=== PATIENT | male | born 1990 | race Two or more races ===

== ENCOUNTER 2019-03-30 05:22 | Day surgery (SDC) | payer OTHER ==
[~2019-03-30] VITALS: Ht 172.7 cm; Wt 61.2 kg
[2019-03-30] VITALS (11 sets, daily range): BP systolic 114–130; BP diastolic 61–84
[~2019-03-30 05:22] MED LIST: LEVOFLOXACIN500 MG ORAL; NKM
[2019-03-30] MEDS ORDERED: LR 1000ml 1,000 ML IVLG SCH (06:17)
--- NOTE | 2019-03-30 06:18 | Anethesia Preoperative Eval ---
Anesthesia Pre-op PMH/ROS General Date of Evaluation: Mar 30, 2019 Time of Evaluation: 07:11 Anesthesiologist: Alvina ASA Score: ASA 2 Mallampati Score Class I : Soft palate, uvula, fauces, pillars visible Class II: Soft palate, uvula, fauces visible Class III: Soft palate, base of uvula visible Class IV: Only hard plate visible Mallampati Classification: Class II Surgeon: Keyonna Diagnosis: Neck Pain Surgical Procedure: ACDF C5-6 Anesthesia History: none Family History: no anesthesia problems Allergies: Coded Allergies: No Known Allergies (Unverified , 03/29/19) Medications: see eMAR Patient NPO?: Yes NPO Date: Mar 29, 2019 NPO Time: 2229 Past Medical History Neurologic/Psychiatric: Reports: depression/anxiety PSxH Narrative: Appendectomy, L Knee Arthroscopy Anesthesia Pre-op Phys. Exam Physician Exam Last Vital Signs Date Time Temp Pulse Resp B/P (MAP) Pulse Ox O2 Delivery O2 Flow Rate FiO2 03/30/19 06:02 98.0 66 20 119/74 (89) 100 03/30/19 05:58 Room Air Constitutional: NAD Neurologic: CN 2-12 intact Cardiovascular: RRR Respiratory: CTA Gastrointestinal: S/NT/ND Airway Exam Mallampati Score: Class II MO: full ROM: limited Teeth: intact Anesthesia Pre-op A/P Risk Assessment & Plan Assessment: ASA 2 Plan: GA, SED, GlideScope Go Status Change Before Surgery: No Pre-Antibiotics Dru Grams Ancef IV Given Within 1 Hr of Incision: Yes Time Given: 07:31 Jairo Tinsley MD Mar 30, 2019 06:18
[2019-03-30] MEDS ORDERED: Rocuronium Bromide 50mg/5ml Inj IV ONE (06:22)
[2019-03-30] MEDS ORDERED: fentaNYL 100 mcg/2 mL IV PRN (06:30)
[2019-03-30] MEDS ORDERED: Acetaminophen (Non formulary) 100 ML IV ONE (06:30)
[2019-03-30] MEDS ORDERED: Ketorolac 30mg Inj IV PRN ×2 (06:30)
[2019-03-30] MEDS ORDERED: Meperidine 50mg/ml Inj(FOR RIGORS ONLY) IVP PRN (06:30)
[2019-03-30] MEDS ORDERED: HYDROcodone/Acetamin 7.5/325 tab ORAL PRN (06:30)
[2019-03-30] MEDS ORDERED: Atropine Sulfate 0.4mg/ml inj IVP PRN (06:30)
[2019-03-30] MEDS ORDERED: HYDROcodone/Acetamin 5/325 tab ORAL PRN (06:30)
[2019-03-30] MEDS ORDERED: Hydromorphone 0.5mg/0.5ml inj IVP PRN (06:30)
[2019-03-30] MEDS ORDERED: Metoclopramide 10mg/2ml Inj IVP PRN (06:30)
[2019-03-30] MEDS ORDERED: Labetalol 5mg/ml 20ml vial IV PRN (06:30)
[2019-03-30] MEDS ORDERED: oxyCODONE HCL/Acetaminophen 5/325mg ORAL PRN (06:30)
[2019-03-30] MEDS ORDERED: LORazepam Inj 2mg/ml 1ml IV PRN (06:30)
[2019-03-30] MEDS ORDERED: Midazolam 2mg/2ml Inj IVP PRN (06:30)
[2019-03-30] MEDS ORDERED: Dexamethasone 20mg/5ml ONE (06:33)
[2019-03-30] MEDS ORDERED: Dexamethasone 4mg/ml vial ONE (06:36)
[2019-03-30] MEDS ORDERED: Lidocaine 1% MPF 10mg/ml 5ml ONE (06:36)
[2019-03-30] MEDS ORDERED: Sodium Chloride 10ml vial INJ ONE (06:36)
[2019-03-30] MEDS ORDERED: fentaNYL 100 mcg/2 mL IV ONE ×2 (06:37→08:16)
[2019-03-30] MEDS ORDERED: Ketamine 500mg/10ml vial ONE (06:38)
[2019-03-30] MEDS ORDERED: Lidocaine 1% Plain 30 ml INJ ONE (06:42)
[2019-03-30] MEDS ORDERED: Thrombin 5000 units TOPIC ONE (06:50)
[2019-03-30] MEDS ORDERED: Gelfoam Size TOPIC ONE (06:50)
[2019-03-30] MEDS ORDERED: Bacitracin 50000 Units Vial ONE (06:50)
[2019-03-30] MEDS ORDERED: ceFAZolin sod 1 GM in NS 55 ML IVPB ONE (07:00)
[2019-03-30] MEDS ORDERED: Dexamethasone 20mg/5ml IVP ONE (07:00)
--- NOTE | 2019-03-30 07:07 | Immediate Post-Op Evaluation ---
Immediate Post-Op Evalulation Immediate Post-Op Evalulation Procedure: ACDF C5-6 Date of Evaluation: Mar 30, 2019 Time of Evaluation: 09:47 IV Fluids: 800 LR Blood Products: 0 Estimated Blood Loss: 25 Urinary Output: 0 Blood Pressure Systolic: 114 Blood Pressure Diastolic: 73 Pulse Rate: 78 Respiratory Rate: 16 O2 Sat by Pulse Oximetry: 100 Temperature (Fahrenheit): 97.2 Pain Score (1-10): 3 Nausea: No Vomiting: No Complications 0 Patient Status: awake, reacts, patent, extubated, none Hydration Status: adequate Dru Grams Ancef IV Given Within 1 Hr of Incision: Yes Time Given: 07:31 Jairo Tinsley MD Mar 30, 2019 07:07
--- NOTE | 2019-03-30 07:17 | Pre-Procedure Note/Attestation ---
Pre-Procedure Note/Attestation Complete Prior to Procedure Planned Procedure: not applicable Procedure Narrative: C5-C6 ACDF Plate Indications for Procedure Pre-Operative Diagnosis: Traumatic discogenic neckpain with internal derangement Attestation I attest that I discussed the nature of the procedure; its benefits; risks and complications; and alternatives (and the risks and benefits of such alternatives ), prior to the procedure, with the patient (or the patient's legal manufacturer representative). I attest that, if there was a reasonable possibility of needing a blood transfusion, the patient (or the patient's legal manufacturer representative) was given the [facility] standardized written summary, pursuant to the [place] Blood Safety Act ([place] Health and Safety Code # 1645, as amended). I attest that I re-evaluated the patient just prior to the surgery and that there has been no change in the patient's H&P, except as documented below: Justin Newby MD Mar 30, 2019 07:17
[2019-03-30] MEDS ORDERED: Bacitracin 50000 Units Vial IRRIG ONE (07:30)
[2019-03-30] MEDS ORDERED: Glycopyrrolate 0.2mg/ml 1ml Vial ONE ×2 (08:55→08:59)
[2019-03-30] MEDS ORDERED: D5 1/2NS 1,000 ML IV SCH (09:11)
--- NOTE | 2019-03-30 09:11 | Brief Operative Note ---
Immediate Post Operative Note Operative Note Pre-op Diagnosis: Traumatic discogenic neckpain with internal derangement Procedure: ACDF C5-C6 anterior plate C5C6 Fluro Interbody device Osteopromotive material Post-op Diagnosis: same as pre-op Findings: consistent w/pre-op dx studies Surgeon: Keyonna ABREU Polls Or Surveys Interviewer: Jez DURAN Anesthesiologist: Alvina ABREU Anesthesia: general Specimen: yes Complications: none Condition: stable Fluids: anesthesia Estimated Blood Loss: minimal Drains: none Implant(s) used?: Yes Justin Newby MD Mar 30, 2019 09:11
[2019-03-30] MEDS ORDERED: Naloxone 0.4mg/ml Inj IVP PRN (09:15)
--- NOTE | 2019-03-30 09:34 | 48 Hour Post Anesthesia Eval ---
Post Anesthesia Evaluation Procedure: ACDF C5-6 Date of Evaluation: Mar 30, 2019 Time of Evaluation: 12:34 Blood Pressure Systolic: 116 0: 73 Pulse Rate: 77 Respiratory Rate: 18 Temperature (Fahrenheit): 98.2 O2 Sat by Pulse Oximetry: 100 Airway: patent Nausea: No Vomiting: No Pain Intensity: 3 Hydration Status: adequate Cardiopulmonary Status: Stable Mental Status/LOC: patient returned to baseline Follow-up Care/Observations: 0 Post-Anesthesia Complications: 0 Follow-up care needed: ready to discharge Jairo Tinsley MD Mar 30, 2019 09:34
[2019-03-30] MEDS: DiphenhydrAMINE 50mg/ml Inj IVP PRN (10:30)
[2019-03-30] MEDS ORDERED: Chloraseptic Spray 20mL Bottle ORAL ONE (10:55)
[2019-03-30] MEDS ORDERED: Chloraseptic Spray 20mL Bottle ORAL PRN (11:00)
[2019-03-30] MEDS ORDERED: HYDROcodone/Acetamin 10/325 tab ORAL PRN (11:00)
[2019-03-30] MEDS ORDERED: LORazepam 0.5mg tab ORAL ONE (11:06)
[2019-03-30] MEDS ORDERED: LORazepam 0.5mg tab ORAL PRN (11:15)
[2019-03-30] MEDS: HYDROmorphone 1mg/ml Carpuject IVP PRN ×3 (12:13→15:49)
[2019-03-30] MEDS ORDERED: ceFAZolin sod 1 GM in D5W 55 ML IV SCH (14:00)
--- NOTE | 2019-03-30 14:49 | Diagnostic Imaging Report ---
INDICATION: Pain, intraoperative TECHNIQUE: Intraoperative imaging Fluoroscopy time: 7.4 seconds Total dose: 0.62694 mGym2 Total number of images: 3 COMPARISON: None FINDINGS: Intraoperative images demonstrate a surgical tool projected at the anterior aspect of the C5-6 disc. Subsequent images demonstrate placement of anterior fusion hardware and a disc spacer at C5-6 IMPRESSION: Intraoperative imaging, as described
--- NOTE | 2019-03-30 14:49 | Diagnostic Imaging Report ---
INDICATION: Pain, intraoperative TECHNIQUE: Intraoperative imaging Fluoroscopy time: 7.4 seconds Total dose: 0.18312 mGym2 Total number of images: 3 COMPARISON: None FINDINGS: Intraoperative images demonstrate a surgical tool projected at the anterior aspect of the C5-6 disc. Subsequent images demonstrate placement of anterior fusion hardware and a disc spacer at C5-6 IMPRESSION: Intraoperative imaging, as described
--- NOTE | 2019-03-30 17:30 | Consultation ---
DATE OF CONSULTATION: 03/30/2019 CONSULTING PHYSICIAN: Gerber Ocampo M.D. REFERRING PHYSICIAN: Justin Newby M.D. REASON FOR CONSULTATION: Acute pain consult. HISTORY OF PRESENT ILLNESS: Dear Dr. Justin Newby, Thank you kindly for consulting me to evaluate and render an opinion as to how to proceed in the management of the patient's acute postoperative cervical spine pain after cervical spine instrumentation surgery today. The patient is a 28-year-old gentleman, who injured his neck after a slip and fall injury. He complains of significant discomfort postoperatively. You consulted me to help with his postoperative management and pain control. I saw the patient at the bedside with the recovery room nurse, GERARD Cooper. I performed detailed history and physical examination. I reviewed the medical record in detail including preoperative records from Dr. Agrawal along with diagnostic testing. I also reviewed multiple records from today's date of surgery at [facility], March 2019 including records from the nursing and pharmacy departments. PAST MEDICAL HISTORY: 1. Acute postoperative cervical spine pain, status post cervical spine instrumentation surgery by Dr. Justin Newby, in March 2019. 2. Slip and fall accident. 3. Panic attacks. 4. Prostatitis history. PAST SURGICAL HISTORY: Knee surgery, appendectomy, and circumcision. ALLERGIES: No known drug allergies. MEDICATIONS: At home, p.r.n. [place]. SOCIAL HISTORY: The patient lives at home with his girlfriend and her extended family. He uses marijuana rarely. He states he quit alcohol usage this past [place]. He denies tobacco usage. FAMILY HISTORY: Noncontributory. REVIEW OF SYSTEMS: Per Dr. Agrawal. PHYSICAL EXAMINATION: VITAL SIGNS: Age 28. Height 5 feet 8 inches, weight 133 pounds, body mass index 20. Afebrile, pulse 76, respirations 16, blood pressure 126/84, oxygen saturation 100% on supplemental oxygen. HEENT: Normocephalic, atraumatic. NECK: Pain with range of motion of the neck. Neck dressing appears clean and dry. The patient is breathing, swallowing, and phonating within normal limits. CHEST: Clear to auscultation. HEART: Regular rate and rhythm. ABDOMEN: Soft. GENITOURINARY: Deferred. NEUROLOGIC: Detailed neurologic exam per Dr. Newby. EXTREMITIES: Moving all extremities x4. A 5/5 dorsiflexion, 5/5 plantar flexion in bilateral lower extremities. DIAGNOSTIC TESTING: From March 24, 2019 shows glucose 77, BUN 13, creatinine 0.7. Sodium 141, potassium 4.3, chloride 102, bicarb 26, calcium 10.3. Total protein 7.9. Albumin 5.4. Total bilirubin 0.7. Alkaline phosphatase 68, AST 17, ALT 20, hemoglobin A1c normal at 5. PTT 31. INR 1.1. White count 6, hematocrit 46, platelets 212. Urinalysis negative. MRSA screening negative. Hepatitis B and C and HIV are all negative. A 12-lead EKG shows normal sinus rhythm, ventricular rate 56. No evidence for acute cardiac ischemia. Echocardiogram shows normal left ventricular function, ejection fraction 60% to 65% dated March 27, 2019. Preoperative chest x-ray from March 24, 2019 shows no acute cardiopulmonary process. MRI of the cervical spine dated October 12, 2018. Impression, desiccation at every cervical level above C6. IMPRESSION: 1. Acute postoperative cervical spine pain, status post cervical spine instrumentation surgery by Dr. Justin Newby, in March 2019. 2. Slip and fall accident. 3. Panic attacks. 4. Prostatitis history. TREATMENT RECOMMENDATIONS: The patient presents postoperatively with significant discomfort after his neck surgery. He does have a history of panic attacks. So, I will order a p.r.n. dose of Ativan 0.5 mg to help with the anxiolysis. I would continue this dosing every six hours p.r.n. for further anxiety episodes or panic attacks. The patient has tolerated hydrocodone in the past. I have ordered [place] 10/325 one tablet orally every three hours p.r.n. for [id number]-tc-[id number] pain. The patient has received IV Dilaudid here operating room without any adverse side effects. Therefore, I have selected Dilaudid 0.5 mg intravenously every two hours p.r.n. for severe breakthrough pain. I have asked the nursing team to place Chloraseptic spray bottle at the bedside to help him with topical analgesia. I will empirically place the patient on Protonix 40 mg daily for GI ulcer prophylaxis. I have also ordered p.r.n. dose of Mylanta 30 mL q.6 hours in case of any GERD symptom exacerbation. I have ordered two antiemetics in case of any nausea symptoms postoperatively. I have started with Zofran 4 mg intravenously every 4 hours p.r.n. for nausea and vomiting. I have ordered Phenergan 12.5 mg intramuscularly every 8 hours p.r.n. for refractory nausea. I will order Benadryl 25 mg orally every 6 hours in case of any itching complaints. I have ordered an incentive spirometer to encourage good pulmonary toilet. I will defer DVT prophylaxis to the surgeon. The patient already has a supply of [place] for home usage. Gerber Ocampo M.D. DR: SAMANTHA JOB#: [id number] CC:
--- NOTE | 2019-03-31 02:45 | Operative Note - Dictated ---
DATE OF OPERATION: 03/30/2019 SURGEON: Justin Newby, Ph.D., M.D. MANAGER KNOWLEDGE: RENEE Brand. ANESTHESIA: Jairo Tinsley M.D. general with intubation. ESTIMATED BLOOD LOSS: Minimal. COMPLICATIONS: None. POSTOPERATIVE CONDITION: Good/stable. PROCEDURE: Anterior interbody reconstruction and fusion with diskectomy C5-C6, with placement of osteopromotive material, interbody device. Anterior internal plate fixation not integral to the interbody device. Intraoperative fluoroscopy interpreted by surgeon. SSEP monitoring. High-powered magnification dissection. DESCRIPTION OF PROCEDURE: The patient was brought to the operating room and in the supine position, general anesthesia with intubation was induced. IV antibiotics, IV Decadron were administered 30 minutes prior to incision time. Markers were placed on the right lateral aspect of the neck and a cross-table image was obtained demonstrating the correct level for incision placement. Left lateral aspect of the neck was sterilely prepped and marked prior to prep for the placement of the appropriate level incision. The marker on the right side of the neck had been removed. Anterior cervical spine was sterilely prepped and draped free in usual sterile fashion. Transverse incision was marked, was placed sharply anterolaterally through dermis and epidermis. Electrocautery dissection was carried through the subcutaneous tissue to the level of the platysmas muscle. Muscle was identified, isolated, transected in line with the incision. Blunt dissection was carried medial to the left sternocleidomastoid muscle as well as the carotid sheath through the deep cervical and pretracheal fascia to the midline between the right and left longus colli muscles. A spinal needle bent at 90-degree angle so as to avoid penetration greater than 3 mm into the disk space. It was placed under high-power magnification into disk space. Cross-table image was obtained demonstrating a correct level at C5-C6. Level was marked. Marker removed. Longus colli muscles were elevated over the appropriate interval followed with retractor placement. Small anterior annulotomy was performed over the involved intervals followed diskectomy to the posterior longitudinal ligament. Posterior longitudinal ligament was resected with decompression of the cord. The patient remained stable at all times. No evidence of cerebrospinal fluid leakage any time. Negative EMGs. After appropriate trials, the appropriate graft was tamped into position. Lordotic titanium containing osteopromotive material and autograft. Anterior internal plate fixation after 10 pounds of traction on the neck was removed, was placed in a compressive fashion. Fluoroscopic imaging, AP and lateral radiographs demonstrating excellent alignment and positioning. The patient is stable. x-rays were performed. Wound irrigated with antibiotic-containing saline. Exploration did not reveal any excoriation or laceration of vital structures. FloSeal applied followed sequential reapproximation of platysmas muscle and subcutaneous tissue followed surgical strips and sterile bandage maintained in place with tape. The patient was awakened and extubated in the operating room and transported to postop recovery in good stable condition. Justin Newby M.D. DR: SOHAM JOB#: [id number] CC:
--- NOTE | 2019-04-02 19:10 | Discharge Summary ---
Discharge Summary Discharge Summary _ DATE OF ADMISSION: 03/30/2019 DATE OF DISCHARGE: 03/30/2019 DISCHARGED BY: Dr. Justin Newby SURGEON: Dr. Justin Newby COMMERCIAL MAINTENANCE TECHNICIAN: Dr. Gerber Ocampo BRIEF HOSPITAL COURSE: Patient is a 28-year-old gentleman, who injured his neck after a slip and fall injury. MRI on October 12, 2018 showed desiccation at cervical level above C6. He was was admitted and underwent ACDF C5-C6. He tolerated procedure well. Surgery was uneventful. Post-operatively, patient was admitted for post-op care. He was placed on SCDs for DVT prophylaxis and was encouraged use of incentive spirometer. Patient was given pain management. Diet was advanced. Incision was clean, dry and intact. Patient was ambulating well with good pain control and was tolerating diet. Patient was eventually cleared for discharge home. FINAL DIAGNOSES: Traumatic discogenic neck pain with internal derangement status post ACDF C5-C6 PROCEDURE: Anterior interbody reconstruction and fusion with diskectomy C5-C6, with placement of osteopromotive material, interbody device. Anterior internal plate fixation not integral to the interbody device. Intraoperative fluoroscopy interpreted by surgeon. SSEP monitoring. High-powered magnification dissection. (Refer to Operative Report) DISCHARGE DISPOSITION: Patient was discharged home. DISCHARGE MEDICATIONS: Refer to Medication Reconciliation Sheet. DISCHARGE INSTRUCTIONS: Post-op instructions given. Follow-up in a week. I have been assigned to complete a DC summary on this account, I was not involved with the patient's management.--QUE Floyd Jacqueline Robles NP Apr 02, 2019 19:10
== END 2019-03-30 16:30 | disposition home or self-care (01) ==
LOC: SUR 05:22 → 3E 11:41
DX: M54.2 Cervicalgia (principal); Z90.89 Acquired absence of other organs; F41.0 Panic disorder [episodic paroxysmal anxiety]; F32.9 Major depressive disorder, single episode, unspecified; F41.9 Anxiety disorder, unspecified
CPT/HCPCS: 22554; 36415; 72040; 76000; 86850; 86900; 86901; 97161; C1713; J0690; J1100; J1170; J1200; J2001; J2250; J2405; J3010; J3490; 94003; 94150

== ENCOUNTER 2020-04-12 06:31 | Day surgery (SDC) | payer OTHER ==
[~2020-04-12] VITALS: Ht 170.2 cm; Wt 65.8 kg
[2020-04-12] VITALS (11 sets, daily range): BP systolic 102–126; BP diastolic 51–80
[~2020-04-12 06:31] MED LIST changes: +RELAFEN500 MG PO; +TYLENOL EXTRA500 MG ORAL; +ceFAZolin 1gm IVPB IVPB ONE; +celeBREX 200mg Cap **SURGERY PATIENTS ONLY ORAL ONE; +oxyCONTIN 20mg tab ORAL ONE
--- NOTE | 2020-04-12 07:46 | Pre-Procedure Note/Attestation ---
Pre-Procedure Note/Attestation Complete Prior to Procedure Planned Procedure: right Procedure Narrative: ankle arthroscopy, possible synovectomy Indications for Procedure Pre-Operative Diagnosis: right anle soft tissue impingement Attestation I attest that I discussed the nature of the procedure; its benefits; risks and complications; and alternatives (and the risks and benefits of such a lternatives), prior to the procedure, with the patient (or the patient's legal tour sales representative). I attest that, if there was a reasonable possibility of needing a blood transfusion, the patient (or the patient's legal tour sales representative) was given the [facility] standardized written summary, pursuant to the [place] Blood Safety Act ([place] Health and Safety Code # 1645, as amended). I attest that I re-evaluated the patient just prior to the surgery and that there has been no change in the patient's H&P, except as documented below: Rodolfo Quintero MD Apr 12, 2020 07:46
--- NOTE | 2020-04-12 07:47 | Operative Note - PDOC ---
Operative Note Operative Note Pre-op Diagnosis: right anle soft tissue impingement Procedure: see op report Post-op Diagnosis: same as pre-op plus Operative Findings: consistent w/pre-op dx studies Anesthesia: regional Specimen: none Complications: none Condition: stable Estimated Blood Loss: none Implant(s) used?: No Rodolfo Quintero MD Apr 12, 2020 07:47
[2020-04-12] MEDS ORDERED: HYDROmorphone 1mg/ml Carpuject SUBQ PRN ×2 (08:00)
[2020-04-12] MEDS ORDERED: Tylenol #3 tab (300mg/30mg) ORAL PRN ×2 (08:00)
[2020-04-12] MEDS ORDERED: HYDROcodone/Acetamin 5/325 tab ORAL PRN ×3 (08:00→08:15)
[2020-04-12] MEDS ORDERED: D5 1/2NS 1,000 ML IV SCH ×2 (08:00)
--- NOTE | 2020-04-12 08:11 | Anethesia Preoperative Eval ---
Anesthesia Pre-op PMH/ROS General Date of Evaluation: Apr 12, 2020 Time of Evaluation: 09:17 Anesthesiologist: Alvina ASA Score: ASA 2 Mallampati Score Class I : Soft palate, uvula, fauces, pillars visible Class II: Soft palate, uvula, fauces visible Class III: Soft palate, base of uvula visible Class IV: Only hard plate visible Mallampati Classification: Class II Surgeon: Leon Diagnosis: R Ankle Pain Surgical Procedure: R Ankle Arthroscopy Anesthesia History: none Family History: no anesthesia problems Allergies: Coded Allergies: No Known Allergies (Unverified , 04/08/20) Medications: see eMAR Patient NPO?: Yes Past Medical History Neurologic/Psychiatric: Reports: depression/anxiety PSxH Narrative: Appendectomy, L Knee Arthroscopy Anesthesia Pre-op Phys. Exam Physician Exam Last Vital Signs Date Time Temp Pulse Resp B/P (MAP) Pulse Ox O2 Delivery O2 Flow Rate FiO2 04/12/20 07:06 Room Air 04/12/20 07:02 96.8 60 18 118/76 100 Constitutional: NAD Neurologic: CN 2-12 intact Cardiovascular: RRR Respiratory: CTA Gastrointestinal: S/NT/ND Airway Exam Mallampati Score: Class II MO: full ROM: limited Teeth: intact Anesthesia Pre-op A/P Risk Assessment & Plan Assessment: ASA 2 Plan: GA, SED Status Change Before Surgery: No Pre-Antibiotics Dru Gram Ancef IV Given Within 1 Hr of Incision: Yes Time Given: 09:36 Jairo Tinsley MD Apr 12, 2020 08:11
--- NOTE | 2020-04-12 08:11 | Immediate Post-Op Evaluation ---
Immediate Post-Op Evalulation Immediate Post-Op Evalulation Procedure: R Ankle Arthroscopy Date of Evaluation: Apr 12, 2020 Time of Evaluation: 10:55 IV Fluids: 1000 Blood Products: 0 Estimated Blood Loss: 10 Urinary Output: 0 Blood Pressure Systolic: 104 Blood Pressure Diastolic: 51 Pulse Rate: 74 Respiratory Rate: 18 O2 Sat by Pulse Oximetry: 100 Temperature (Fahrenheit): 97.3 Pain Score (1-10): 2 Nausea: No Vomiting: No Complications 0 Patient Status: awake, reacts, patent, none Hydration Status: adequate Dru Gram Ancef IV Given Within 1 Hr of Incision: Yes Time Given: 09:36 Jairo Tinsley MD Apr 12, 2020 08:11
--- NOTE | 2020-04-12 08:12 | 48 Hour Post Anesthesia Eval ---
Post Anesthesia Evaluation Procedure: R Ankle Arthroscopy Date of Evaluation: Apr 12, 2020 Time of Evaluation: 13:12 Blood Pressure Systolic: 118 0: 75 Pulse Rate: 73 Respiratory Rate: 18 Temperature (Fahrenheit): 98 O2 Sat by Pulse Oximetry: 100 Airway: patent Nausea: No Vomiting: No Pain Intensity: 2 Hydration Status: adequate Cardiopulmonary Status: Stable Mental Status/LOC: patient returned to baseline Follow-up Care/Observations: 0 Post-Anesthesia Complications: 0 Follow-up care needed: ready to discharge Jairo Tinsley MD Apr 12, 2020 08:12
[2020-04-12] MEDS ORDERED: oxyCODONE HCL/Acetaminophen 5/325mg ORAL PRN (08:15)
[2020-04-12] MEDS ORDERED: Acetaminophen (Non formulary) 100 ML IV ONE (08:15)
[2020-04-12] MEDS ORDERED: LR 1000ml 1,000 ML IVLG SCH (08:15)
[2020-04-12] MEDS ORDERED: Metoclopramide 10mg/2ml Inj IVP PRN (08:15)
[2020-04-12] MEDS ORDERED: LORazepam Inj 2mg/ml 1ml IV PRN (08:15)
[2020-04-12] MEDS ORDERED: Midazolam 2mg/2ml Inj IVP PRN (08:15)
[2020-04-12] MEDS ORDERED: HYDROcodone/Acetamin 7.5/325 tab ORAL PRN (08:15)
[2020-04-12] MEDS ORDERED: Ketorolac 30mg Inj IV PRN ×2 (08:15)
[2020-04-12] MEDS ORDERED: Atropine Sulfate 0.4mg/ml inj IVP PRN (08:15)
[2020-04-12] MEDS ORDERED: Meperidine 25mg/1ml Inj (FOR RIGORS ONLY) IV PRN (08:15)
[2020-04-12] MEDS ORDERED: Hydromorphone 0.5mg/0.5ml inj IVP PRN (08:15)
[2020-04-12] MEDS ORDERED: Labetalol 5mg/ml 20ml vial IV PRN (08:15)
[2020-04-12] MEDS ORDERED: DiphenhydrAMINE 50mg/ml Inj IVP PRN (08:15)
[2020-04-12] MEDS ORDERED: fentaNYL 100 mcg/2 mL IV PRN (08:15)
[2020-04-12] MEDS ORDERED: fentaNYL 100 mcg/2 mL IV ONE (09:12)
[2020-04-12] MEDS ORDERED: Ketamine 500mg/10ml vial ONE (09:13)
[2020-04-12] MEDS ORDERED: Sodium Chloride 10ml vial INJ ONE (09:16)
[2020-04-12] MEDS ORDERED: Lidocaine 1% MPF 10mg/ml 5ml ONE (09:16)
[2020-04-12] MEDS ORDERED: Duramorph PF 5mg/10ml amp ONE (09:27)
[2020-04-12] MEDS ORDERED: Ketorolac 30mg Inj ONE (09:27)
[2020-04-12] MEDS ORDERED: Bupivacaine w/Epi 0.25% 50ml vial INJ ONE (09:27)
[2020-04-12] MEDS ORDERED: Kenalog-40 1ml Vial ONE (09:27)
--- NOTE | 2020-04-12 15:59 | Operative Note - Dictated ---
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 POSTOPERATIVE DIAGNOSIS: Right ankle chondral damage with secondary soft tissue impingement. PROCEDURE: 1. Right ankle diagnostic arthroscopy. 2. Right ankle, synovectomy, debridement. SURGEON: Rodolfo Quintero MD. ANESTHESIA: General. INDICATION FOR PROCEDURE: The patient is a pleasant gentleman, who has had a significant ankle injury. He was noted to have some chondral damage, continued to have pain despite conservative treatment, elected to undergo right ankle arthroscopy, chondroplasty, synovectomy. Risks, limitations, expectations, and complications of procedure were discussed in detail including continued pain, need for future surgery, risk of anesthesia, medical complications, in particular we discussed based on the extent of chondral damage may chondroplasty or microfracture. DESCRIPTION OF PROCEDURE: After informed consent obtained, the patient was taken to the operating room table. The patient was placed under general anesthesia. Right leg was prepped and draped in a sterile manner. Time-out was performed. Trocar was then placed into the ankle mortise just medial to the tibialis anterior tendon. Skin was incised. Blunt dissection down to the capsule was performed. The camera was placed into the ankle joint. There was hypertrophic scar tissue and synovial tissue in the lateral gutter. Using inside-out technique, a 25-gauge needle was then placed in the working portal. Skin was incised. Blunt dissection down to the capsule was performed. The shaver was then placed through this area and debridement of soft tissue along the lateral gutter was performed. Once that was done, the camera was placed in the lateral viewing portal. There was soft tissue extending in the medial gutter and scar tissue. This was debrided. Once this was debrided, it allowed better visualization of the talar neck, which showed some chondral damage. Gentle chondroplasty of this area was performed. Once this was completed, the instruments were removed. Portal sites were closed with 3-0 Monocryl sutures, Steri-Strips and sterile dressing along with a posterior splint was applied. Rodolfo Quintero M.D. DR: ARMEN/JENNIFER JOB#: [id number] CC: HALEY
== END 2020-04-12 13:00 | disposition home or self-care (01) ==
LOC: SUR 06:31
DX: M25.871 Other specified joint disorders, right ankle and foot (principal); F32.9 Major depressive disorder, single episode, unspecified; F41.9 Anxiety disorder, unspecified; Z90.89 Acquired absence of other organs
CPT/HCPCS: 29897; 94003; J0131; J0690; J1100; J1885; J2250; J2405; J2704; J3010; J3301; J3490; U0004; 94150